=== PATIENT | male | born 1990 | race Caucasian/White ===

== ENCOUNTER 2017-04-16 18:07 | Emergency (ER) | payer SELFPAY ==
[~2017-04-16] VITALS: Ht 180.3 cm; Wt 72.6 kg
[~2017-04-16 18:07] MED LIST: KEFLEX500 MG PO; MOTRIN800 MG PO; NKHM; TRAMADOL HCL50 MG PO; VICODIN 5/500 505 MG PO; VOLTAREN50 M1 PO
== END 2017-04-16 19:09 | disposition left against medical advice (07) ==
LOC: ED 18:07
DX: R11.2 Nausea with vomiting, unspecified (principal)

== ENCOUNTER 2018-08-26 21:14 | Emergency (ER) | payer MEDICAID ==
[~2018-08-26] VITALS: Ht 172.7 cm; Wt 63.5 kg
--- NOTE | ~2018-08-26 | EKG ---
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
[2018-08-26 21:38] LABS: BASO % 0.5 % (0.0-1.0); EOS # 0.1 10*3/uL (0.0-0.4); EOS % 0.9 % (1.0-4.0); HEMOGLOBIN 15.9 g/dl (14.0-18.0); LYMPH # 1.4 10*3/uL (1.3-4.4); LYMPH % 16.5 % (27.0-41.0); MEAN CELL VOLUME 94.2 fl (80.0-94.0); MEAN CORPUSCULAR HGB 30.6 pg (27.0-31.0); MEAN CORPUSCULAR HGB CONC 32.4 g/dl (33.0-37.0); MEAN PLATELET VOLUME 10.3 fl (9.6-12.3); MONO # 0.7 10*3/uL (0.1-1.0); NEUT % 73.9 % (47.0-73.0); PLATELET COUNT AUTOMATED 231 10*3/uL (130-400); RED CELL DISTRI WIDTH 13.2 % (0-14.5); WHITE BLOOD COUNT 8.2 10*3/uL (4.8-10.8)
[2018-08-26 22:01] LABS: ALBUMIN 3.8 gm/dl (3.1-4.5); BUN 11 mg/dl (7-24); CHLORIDE 104 mmol/L (98-107); CREATININE 1.17 mg/dL (0.70-1.30); POTASSIUM 3.3 mmol/L (3.5-5.1); SGOT/AST 270 IU/L (3-35); SGPT/ALT 420 U/L (12-78); SODIUM 139 mmol/L (136-145); TOTAL PROTEIN 8.1 gm/dL (6.4-8.2)
[2018-08-26 22:03] LABS: ALKALINE PHOSPHATASE 85 U/L (45-117); TROPONIN I 0.021 ng/ml (<0.045)
== END 2018-08-27 00:53 | disposition home or self-care (01) ==
LOC: ED 21:14
PROVIDERS: Student in an Organized Health Care Education/Training Program
DX: T40.1X1A Poisoning by heroin, accidental (unintentional), initial encounter (principal); R40.20 Unspecified coma; Y92.89 Other specified places as the place of occurrence of the external cause

== ENCOUNTER 2018-10-30 13:45 | Inpatient (IN) | payer OTHER ==
[~2018-10-30] VITALS: Ht 180.3 cm; Wt 70.1 kg
--- NOTE | ~2018-10-30 | CON ---
[place], [place] REPORT OF CONSULTATION NAME: [facility]ERRER [id number] UNIT #: [id number] ROOM: 502 DOCTOR: JOVANA JIN MD BIRTHDATE: [birth year] DOS: 10/31/2018 HISTORY OF PRESENT ILLNESS: This is a 27-year-old patient who presented with chief complaint of not feeling well. Nonspecific distress, epigastric distress, jaundice. Hepatitis panel was done and was found to be hepatitis C antibody greater than 11, recently result. His urinalysis was unremarkable. He has a radiologic study, pericholecystic fluid, wall thickening measuring 1.5 cm. No stones. Findings consistent with hepatitis. His comprehensive metabolic panel, GFR greater than 60. His bilirubin 2.6, AST and ALT of 1400 and 1500+ respectively, alkaline phosphatase of 141. Hemoglobin A1c of 5.6. CBC differential, white blood cell normal, H and H of 14 and 44, platelets 175. CT scan of the abdomen and pelvis with contrast that are available. No acute process has been reported, possible hernia at L5. Drug screening amphetamine positive, THC positive. PAST MEDICAL HISTORY: Recreational drug of choice is heroin injection. He has had a recent overdosed admissions. He is actively consumer of recreational drugs. Otherwise, nonalcohol consumer except on rare base and tobacco user. PAST SURGICAL HISTORY: Unremarkable. SOCIAL HISTORY: As identified above including marijuana and illicit drugs. FAMILY HISTORY: Noncontributory. ALLERGIES: No known medications. MEDICATIONS AT HOME: None. REVIEW OF SYSTEMS: HEENT: Denies double vision or blurred vision. RESPIRATORY: Denies shortness of breath. CARDIOVASCULAR: Denies chest pain. DIGESTIVE SYSTEM: Nonspecific abdominal distress. PHYSICAL EXAMINATION: GENERAL: Nontoxic patient. HEENT: Within normal limits. Numerous tattoos, poor dental hygiene. No thrush. NECK: Supple, no thyromegaly. CHEST: Symmetric anatomy, equal expansion. HEART: Normal sinus rhythm, no gallop, no murmur. ABDOMEN: No hepato-organomegaly can be elicited. No rebound tenderness. EXTREMITIES: No cyanosis, no pedal edema. NEUROLOGIC: Alert, oriented to time, place, person. No encephalopathy. INTEGUMENT: Numerous on professional made tattoos in extremities and thorax. IMPRESSION: Acute hepatitis C, active consumer of illicit drugs, drug of choice heroin. [place], [place] REPORT OF CONSULTATION NAME: MARTÍN FERRER UNIT #: [id number] ROOM: 502 DOCTOR: ANNABEL SUBRAMANIAN,JOVANA BIRTHDATE: [birth year] PLAN AND DISCUSSION: Stabilization, IV hydration, nutritional support while he is in the house and I have had a discussion at the bedside with him. He appears at least temporarily being remorseful of acquired hepatitis C and etiology of injection history and so forth and I have advised him that once he is proved that he is drug free and avoiding the illicit drug, there is a possibility that he would be a candidate for future treatment, but that is not at the acute phase. Thank you very much indeed for your kind referral. JOVANA JIN MD CM:CONSTR:REPORT OF CONSULTATION 31 11/10/18 0958 interface
--- NOTE | ~2018-10-30 | EKG ---
[place], [place] ELECTROCARDIOGRAM REPORT NAME: MARTÍN FERRER UNIT #: [id number] ROOM: 502 DOCTOR: EPIPHANY DRAFT REPORT BIRTHDATE: [birth year] [facility] Test Date: 2018-10-30 Test Time: 15:27:46 Pat Name: MARTÍN FERRER Department: Room: [facility] Gender: M [employer] Driver: SS RESP : 1990 Requested By: TONYA WYNN Order Number: [id number] Reading MD: Jan Hwang MD Measurements Intervals [place] Rate: 77 P: 60 CT: 176 QRS: 84 QRSD: 87 T: 36 QT: 378 QTc: 428 Interpretive Statements Sinus rhythm ST elev, probable normal early repol pattern Compared to ECG 08/26/2018 21:44:04 ST (T wave) deviation now present Electronically Signed On 11-03-2018 14:20:02 PDT by Jan Hwang MD CM:EKGRPT:ELECTROCARDIOGRAM REPORT [id number] TONYA WYNN EPIPHANY DRAFT REPORT TONYA WYNN
[2018-10-30 13:47] VITALS: BP 102/64
[2018-10-30 15:06] LABS: BASO # 0.1 10*3/uL (0.0-0.1); BASO % 0.8 % (0.0-1.0); EOS # 0.2 10*3/uL (0.0-0.4); EOS % 2.4 % (1.0-4.0); HEMATOCRIT 47.5 % (42.0-52.0); HEMOGLOBIN 15.8 g/dl (14.0-18.0); LYMPH # 0.5 10*3/uL (1.3-4.4); LYMPH % 8.3 % (27.0-41.0); MEAN CELL VOLUME 93.5 fl (80.0-94.0); MEAN CORPUSCULAR HGB 31.1 pg (27.0-31.0); MEAN CORPUSCULAR HGB CONC 33.3 g/dl (33.0-37.0); MEAN PLATELET VOLUME 10.2 fl (9.6-12.3); MONO # 0.4 10*3/uL (0.1-1.0); MONO % 6.4 % (3.0-9.0); NEUT # 5.2 10*3/uL (2.3-7.9); NEUT % 81.9 % (47.0-73.0); PLATELET COUNT AUTOMATED 211 10*3/uL (130-400); RED BLOOD COUNT 5.08 10*6/uL (4.50-5.90); RED CELL DISTRI WIDTH 13.4 % (0-14.5); WHITE BLOOD COUNT 6.3 10*3/uL (4.8-10.8)
[2018-10-30 15:22] LABS: INTERNATIONAL NORM RATIO 1.1 (2.0-3.5)
[2018-10-30 16:03] LABS: ALBUMIN 3.8 gm/dl (3.1-4.5); ALKALINE PHOSPHATASE 92 U/L (45-117); BUN 11 mg/dl (7-24); CHLORIDE 101 mmol/L (98-107); CREATININE 1.06 mg/dL (0.70-1.30); LIPASE 82 U/L (73-393); SGPT/ALT 973 U/L (12-78); SODIUM 138 mmol/L (136-145); TOTAL PROTEIN 7.9 gm/dL (6.4-8.2)
[2018-10-30 16:18] LABS: SGOT/AST 942 IU/L (3-35)
[2018-10-30 16:21] LABS: BILIRUBIN 2+ (NEGATIVE); BLOOD NEGATIVE (NEGATIVE); CLARITY SL CLOUDY (CLEAR); COLOR ORANGE (YELLOW); GLUCOSE NEGATIVE (NEGATIVE); KETONE TRACE (NEGATIVE); LEUKO ESTERASE NEGATIVE (NEGATIVE); NITRITE POSITIVE (NEGATIVE); SPECIFIC GRAVITY 1.015 (1.005-1.030)
[2018-10-30 16:23] LABS: ETHYL ALCOHOL < 3.0 mg/dl (<3); TROPONIN I < 0.015 ng/ml (<0.045)
--- NOTE | 2018-10-30 16:28 | NUR ---
PAIN 2/10 AFTER TORADOL.
[2018-10-30 16:29] LABS: URINE AMPHETAMINES > 1000 (1000ng/ml); URINE BARBITURATES < 200 (200ng/ml); URINE BENZODIAZEPINES < 200 (200ng/ml); URINE CANNABINOIDS (THC) > 50 (50ng/ml); URINE COCAINE < 300 (300ng/ml); URINE METHADONE < 300 (300ng/ml); URINE OPIATES < 300 (300ng/ml)
[2018-10-30 16:31] LABS: URINE PHENCYCLIDINE < 25 (25ng/ml)
[2018-10-30 16:35] LABS: BACTERIA 1+; MUCOUS 3+
[2018-10-30 16:51] VITALS: BP 103/51
[2018-10-30 18:25] VITALS: BP 106/65
--- NOTE | 2018-10-30 18:25 | NUR ---
Time: 1824 A 27 year old MALE admitted to 5E under services of JR NORMAN DO. Pt. arrived via wheel chair from ER. Chief complaint: UTI AND ABDOMINAL PAIN.. ALESSANDRA LAIRD
--- NOTE | 2018-10-30 19:41 | NUR ---
PT TAKES NO HOME MEDS.
[2018-10-30 20:00] VITALS: BP 96/58
--- NOTE | 2018-10-30 20:09 | NUR ---
CALLED DR. DE LA VEGA AT THIS TIME. PATIENT REQUESTING NICOTROL INHALER. DR. DE LA VEGA STATED THAT IS FINE TO PUT IN
--- NOTE | 2018-10-30 22:29 | NUR ---
PATIENT RESTING IN BED WATCHING TV. DENIES PAIN. DENIES NEEDS AT THIS TIME. BED IN LOWEST POSITION CALL LIGHT IN REACH
[2018-10-31] VITALS: BP 119/50
--- NOTE | 2018-10-31 02:36 | NUR ---
24 HR chart check completed.
--- NOTE | 2018-10-31 06:07 | NUR ---
DR DE LA VEGA AWARE OF PATIENT C/O HEARTBURN. ORDER TAKEN
[2018-10-31 07:04] LABS: HEPATITIS B SURFACE AG Negative (Negative)
[2018-10-31 07:28] LABS: BASO # 0.1 10*3/uL (0.0-0.1); BASO % 1.2 % (0.0-1.0); EOS # 0.3 10*3/uL (0.0-0.4); EOS % 4.5 % (1.0-4.0); HEMATOCRIT 44.6 % (42.0-52.0); HEMOGLOBIN 14.5 g/dl (14.0-18.0); LYMPH # 0.9 10*3/uL (1.3-4.4); LYMPH % 15.6 % (27.0-41.0); MEAN CELL VOLUME 95.1 fl (80.0-94.0); MEAN CORPUSCULAR HGB 30.9 pg (27.0-31.0); MEAN CORPUSCULAR HGB CONC 32.5 g/dl (33.0-37.0); MEAN PLATELET VOLUME 11.4 fl (9.6-12.3); MONO # 0.5 10*3/uL (0.1-1.0); MONO % 8.7 % (3.0-9.0); NEUT # 4.1 10*3/uL (2.3-7.9); NEUT % 69.7 % (47.0-73.0); PLATELET COUNT AUTOMATED 175 10*3/uL (130-400); RED BLOOD COUNT 4.69 10*6/uL (4.50-5.90); RED CELL DISTRI WIDTH 13.7 % (0-14.5)
[2018-10-31 08:00] VITALS: BP 91/65
[2018-10-31 08:15] LABS: ALBUMIN 3.2 gm/dl (3.1-4.5); BUN 10 mg/dl (7-24); CHLORIDE 107 mmol/L (98-107); CHOLESTEROL 125 mg/dL (<200); CREATININE 0.79 mg/dL (0.70-1.30); PHOSPHOROUS 3.3 mg/dL (2.5-4.9); POTASSIUM 4.1 mmol/L (3.5-5.1); SODIUM 141 mmol/L (136-145); TOTAL PROTEIN 6.4 gm/dL (6.4-8.2); TRIGLYCERIDES 103 mg/dl (<150); VLDL CHOLESTEROL 21 mg/dL (6-40)
[2018-10-31 08:21] LABS: ALKALINE PHOSPHATASE 141 U/L (45-117); HDL CHOLESTEROL 26 mg/dl (40-60); LDL CHOLESTEROL 78 mg/dL (9-159)
[2018-10-31 08:22] LABS: SGOT/AST 1497 IU/L (3-35); SGPT/ALT 1545 U/L (12-78)
--- NOTE | 2018-10-31 10:41 | NUR ---
DR JIN NOTIFIED OF NEW CONSULT FOR TRANSAMNITIS.HE WILL ROUND AND SEE PT TODAY.
[2018-10-31 11:06] LABS: HEPATITIS C VIRUS ANTIBODY >11.0 s/co (0.0-0.9)
--- NOTE | 2018-10-31 11:08 | NUR ---
NOTIFIED DR MARTIN OF [facility]IT[facility]UE CALLED FROM LAB. PT IS HEP C POSITIVE.
[2018-10-31 12:00] VITALS: BP 122/60
--- NOTE | 2018-10-31 12:26 | NUR ---
Tobacco Sorter in to talk to patient. Patient states lives at HOME with GIRLFRIEND. There are NO steps in the home. Physician: NONE Pharmacy: [facility] Home health services: NONE Patient's level of ADLs: INDEPENDENT Patient has working utilities: YES DME: NONE Follow-up physician's appointment after d/c: PREFERS TO MAKE OWN Does patient want to access PORTAL?: NO Discharge plan PT LIVES AT HOME WITH HIS GIRLFRIEND AND IS INDEPENDENT IN HIS CARE. DENIES ANY NEEDS AT HOME ON DISCHARAGE. WILL CONTINUE TO FOLLOW. STATES HE WILL HAVE A RIDE HOME.. FLAVIO MELISSA
[2018-10-31 16:00] VITALS: BP 95/51
--- NOTE | 2018-10-31 16:03 | NUR ---
PT REQUESTING LAB RESULTS FROM HEP PANEL. DISCUSSED LABS AT LENGTH AT BEDSIDE. ENCOURAGED PT TO DISCUSS THE RESUKLTS WITH DR JIN WHEN HE ROUNDS AND SEES PT.
--- NOTE | 2018-10-31 18:53 | NUR ---
ZOFRAN 4 MG GIVEN FOR C/O NAUSEA.
--- NOTE | 2018-10-31 19:30 | NUR ---
DR JIN AT BEDSIDE
[2018-10-31 20:00] VITALS: BP 101/54
--- NOTE | 2018-10-31 20:45 | NUR ---
DR SINCLAIR AWARE OF PATIENT AND PATIENT'S GIRLFRIEND REQUESTING TO TALK TO A DOCTOR ABOUT NEW DIAGNOSIS.
[2018-11-01] VITALS: BP 118/56
--- NOTE | 2018-11-01 02:16 | NUR ---
PATIENT RESTING IN BED WITH NO S/S OF DISTRESS. NO NEEDS MADE. BED IN LOWEST POSITION, CALL LIGHT IN REACH
[2018-11-01 06:55] LABS: ALBUMIN 3.1 gm/dl (3.1-4.5); BUN 6 mg/dl (7-24); CHLORIDE 109 mmol/L (98-107); CREATININE 0.73 mg/dL (0.70-1.30); POTASSIUM 3.8 mmol/L (3.5-5.1); SODIUM 144 mmol/L (136-145); TOTAL PROTEIN 6.3 gm/dL (6.4-8.2)
[2018-11-01 07:25] LABS: SGOT/AST 1937 IU/L (3-35); SGPT/ALT 2273 U/L (12-78)
[2018-11-01 07:26] LABS: ALKALINE PHOSPHATASE 147 U/L (45-117)
[2018-11-01 08:00] VITALS: BP 90/56
--- NOTE | 2018-11-01 08:00 | NUR ---
Patient resting quietly with no c/o discomfort. Respirations easy and regular. Vital signs stable. No overt distress. KYARA MIGUEL
--- NOTE | 2018-11-01 09:00 | NUR ---
MARCI IN TO SEE PT.
[2018-11-01 12:00] VITALS: BP 99/50
--- NOTE | 2018-11-01 12:01 | NUR ---
HEPATITIS EDUCATION PROVIDED.
--- NOTE | 2018-11-01 12:22 | NUR ---
24 HR chart check completed.
--- NOTE | 2018-11-01 14:09 | NUR ---
FAMILY EDUCATED ON HEP C.
--- NOTE | 2018-11-01 15:31 | NUR ---
Medicated with iv zofran as ordered per pt request for c/o nausea.
[2018-11-01 16:00] VITALS: BP 117/65
--- NOTE | 2018-11-01 19:04 | NUR ---
MEDICATED WITH IV TORADOL ORDERED PER PT REQUEST FOR C/O UPPER ABDOMINAL PAIN.
--- NOTE | 2018-11-01 19:25 | NUR ---
DR FOWLER'S OFFICE # GIVENT TO PT FOR F/U.
[2018-11-01 20:00] VITALS: BP 102/75
--- NOTE | 2018-11-01 21:16 | NUR ---
MEDICATED WITH PO ATIVAN ORDERED PER PT REQUEST FOR C/O ANXIETY.
--- NOTE | 2018-11-01 22:11 | NUR ---
MEDICATION EFFECTIVE FOR PAIN.
[2018-11-02] VITALS: BP 102/47
[2018-11-02 06:58] LABS: ALKALINE PHOSPHATASE 134 U/L (45-117); BUN 5 mg/dl (7-24); CHLORIDE 107 mmol/L (98-107); CREATININE 0.81 mg/dL (0.70-1.30); POTASSIUM 3.5 mmol/L (3.5-5.1); SGOT/AST 791 IU/L (3-35); SODIUM 141 mmol/L (136-145); TOTAL PROTEIN 6.1 gm/dL (6.4-8.2)
[2018-11-02 07:28] LABS: SGPT/ALT 1610 U/L (12-78)
[2018-11-02 08:00] VITALS: BP 100/50
--- NOTE | 2018-11-02 11:01 | NUR ---
Discharge instructions reviewed with patient/family. Patient receptive and verbalizes understanding. Follow-up care arranged. Written instructions given to patient/family. PATIENT AMBULATED FROM FLOOR. NO S/S OF DISTRESS. KAZ GORE
== END 2018-11-02 11:01 | disposition home or self-care (01) | DRG 442 ==
LOC: ED 13:45 → 5E 17:16 → EDHOLD 17:16 → 5E 18:17
PROVIDERS: Internal Medicine; Nurse Practitioner; Student in an Organized Health Care Education/Training Program; ADMIT Internal Medicine
DX: B17.10 Acute hepatitis C without hepatic coma (principal); N39.0 Urinary tract infection, site not specified; R17 Unspecified jaundice; E84.9 Cystic fibrosis, unspecified; E83.41 Hypermagnesemia; R10.33 Periumbilical pain; R74.0 Nonspecific elevation of levels of transaminase and lactic acid dehydrogenase [LDH]; F17.210 Nicotine dependence, cigarettes, uncomplicated; R80.9 Proteinuria, unspecified; E80.6 Other disorders of bilirubin metabolism; J45.909 Unspecified asthma, uncomplicated; F12.90 Cannabis use, unspecified, uncomplicated; I95.9 Hypotension, unspecified; R00.0 Tachycardia, unspecified; F15.90 Other stimulant use, unspecified, uncomplicated; F14.90 Cocaine use, unspecified, uncomplicated; Z71.6 Tobacco abuse counseling

== ENCOUNTER → 2018-11-21 | Outpatient (CLI) | payer OTHER ==
[2018-11-21 20:02] LABS: BASO # 0.1 10*3/uL (0.0-0.1); BASO % 0.8 % (0.0-1.0); EOS # 0.3 10*3/uL (0.0-0.4); EOS % 4.2 % (1.0-4.0); HEMATOCRIT 43.4 % (42.0-52.0); HEMOGLOBIN 14.2 g/dl (14.0-18.0); LYMPH # 2.2 10*3/uL (1.3-4.4); LYMPH % 27.5 % (27.0-41.0); MEAN CELL VOLUME 95.4 fl (80.0-94.0); MEAN CORPUSCULAR HGB 31.2 pg (27.0-31.0); MEAN CORPUSCULAR HGB CONC 32.7 g/dl (33.0-37.0); MEAN PLATELET VOLUME 10.2 fl (9.6-12.3); MONO # 0.5 10*3/uL (0.1-1.0); MONO % 6.2 % (3.0-9.0); NEUT # 4.8 10*3/uL (2.3-7.9); NEUT % 61.2 % (47.0-73.0); PLATELET COUNT AUTOMATED 308 10*3/uL (130-400); RED BLOOD COUNT 4.55 10*6/uL (4.50-5.90); RED CELL DISTRI WIDTH 13.2 % (0-14.5); WHITE BLOOD COUNT 7.9 10*3/uL (4.8-10.8)
[2018-11-21 20:17] LABS: ALBUMIN 3.8 gm/dl (3.1-4.5); ALKALINE PHOSPHATASE 76 U/L (45-117); BUN 12 mg/dl (7-24); CHLORIDE 107 mmol/L (98-107); POTASSIUM 3.8 mmol/L (3.5-5.1); SGOT/AST 19 IU/L (3-35); SGPT/ALT 36 U/L (12-78); SODIUM 143 mmol/L (136-145); TOTAL PROTEIN 7.6 gm/dL (6.4-8.2)
[2018-11-24 13:05] LABS: HEPATITIS C QUANTITATION <15 IU/mL (.)
== END | disposition home or self-care (01) ==
LOC: LAB 19:33
PROVIDERS: Internal Medicine
DX: B17.10 Acute hepatitis C without hepatic coma (principal)

== ENCOUNTER 2019-04-15 21:08 | Emergency (ER) | payer OTHER ==
[~2019-04-15] VITALS: Ht 170.1 cm; Wt 74.8 kg
== END 2019-04-15 23:05 | disposition home or self-care (01) ==
LOC: ED 21:08
DX: M54.5 Low back pain (principal); M79.662 Pain in left lower leg; J45.909 Unspecified asthma, uncomplicated; F17.210 Nicotine dependence, cigarettes, uncomplicated; X58.XXXA Exposure to other specified factors, initial encounter; Y93.89 Activity, other specified; Y92.89 Other specified places as the place of occurrence of the external cause; Y99.0 Civilian activity done for income or pay

== ENCOUNTER 2021-02-12 21:47 | Emergency (ER) | payer OTHER ==
[~2021-02-12] VITALS: Ht 177.8 cm; Wt 68.0 kg
[2021-02-12 23:01] LABS: BASO # 0.1 10*3/uL (0.0-0.1); BASO % 0.5 % (0.0-1.0); EOS # 0.1 10*3/uL (0.0-0.4); EOS % 0.8 % (1.0-4.0); HEMATOCRIT 47.8 % (42.0-52.0); LYMPH # 2.1 10*3/uL (1.3-4.4); MEAN CELL VOLUME 96.2 fl (80.0-94.0); MEAN CORPUSCULAR HGB 31.4 pg (27.0-31.0); MEAN CORPUSCULAR HGB CONC 32.6 g/dl (33.0-37.0); MEAN PLATELET VOLUME 9.9 fl (9.6-12.3); MONO # 0.7 10*3/uL (0.1-1.0); MONO % 5.8 % (3.0-9.0); NEUT # 8.7 10*3/uL (2.3-7.9); NEUT % 74.6 % (47.0-73.0); PLATELET COUNT AUTOMATED 289 10*3/uL (130-400); RED BLOOD COUNT 4.97 10*6/uL (4.50-5.90); RED CELL DISTRI WIDTH 13.1 % (0-14.5); WHITE BLOOD COUNT 11.6 10*3/uL (4.8-10.8)
[2021-02-12 23:16] LABS: ALBUMIN 4.1 gm/dl (3.1-4.5); ALKALINE PHOSPHATASE 89 U/L (45-117); BUN 11 mg/dl (7-24); CHLORIDE 105 mmol/L (98-107); CREATININE 1.01 mg/dL (0.70-1.30); SGOT/AST 202 IU/L (3-35); SGPT/ALT 280 U/L (12-78); SODIUM 139 mmol/L (136-145); TOTAL PROTEIN 8.5 gm/dL (6.4-8.2)
[2021-02-13] MEDS ORDERED: AMOXICILLIN500 M2 PO (03:12)
== END 2021-02-13 03:46 | disposition home or self-care (01) ==
LOC: ED 21:47
PROVIDERS: Emergency Medicine
DX: K04.7 Periapical abscess without sinus (principal); F17.210 Nicotine dependence, cigarettes, uncomplicated

== ENCOUNTER 2022-12-26 22:31 | Emergency (ER) | payer OTHER ==
[~2022-12-26 22:31] MED LIST changes: +AMOXICILLIN500 M2 PO
[2022-12-26 22:58] LABS: BASO # 0.1 10*3/uL (0.0-0.1); BASO % 0.6 % (0.0-1.0); EOS # 0.1 10*3/uL (0.0-0.4); EOS % 1.1 % (1.0-4.0); HEMATOCRIT 41.7 % (42.0-52.0); LYMPH # 1.9 10*3/uL (1.3-4.4); LYMPH % 21.2 % (27.0-41.0); MEAN CELL VOLUME 90.5 fl (80.0-94.0); MEAN CORPUSCULAR HGB 30.8 pg (27.0-31.0); MEAN CORPUSCULAR HGB CONC 34.1 g/dl (33.0-37.0); MEAN PLATELET VOLUME 9.4 fl (9.6-12.3); MONO # 1.1 10*3/uL (0.1-1.0); MONO % 12.4 % (3.0-9.0); NEUT # 5.6 10*3/uL (2.3-7.9); NEUT % 64.5 % (47.0-73.0); PLATELET COUNT AUTOMATED 283 10*3/uL (130-400); RED BLOOD COUNT 4.61 10*6/uL (4.50-5.90); RED CELL DISTRI WIDTH 14.1 % (0-14.5); WHITE BLOOD COUNT 8.8 10*3/uL (4.8-10.8)
[2022-12-26 23:10] LABS: ACT PARTIAL THROMBO TIME 26.8 SECONDS (20.0-32.1); INTERNATIONAL NORM RATIO 1.1 (2.0-3.5)
[2022-12-26 23:20] LABS: ALKALINE PHOSPHATASE 78 U/L (46-116); BUN 15 mg/dl (9-23); CHLORIDE 107 mmol/L (98-107); CPK 361 U/L (34-171); LIPASE 36 U/L (12-53); POTASSIUM 3.8 mmol/L (3.4-5.1); SGPT/ALT 377 U/L (10-49); TOTAL PROTEIN 8.3 gm/dL (6.0-8.0)
[2022-12-26 23:40] LABS: BILIRUBIN 1+ (Negative); BLOOD 2+ (Negative); CLARITY Clear (Clear); COLOR Dark Yellow (Yellow); GLUCOSE Negative (Negative); KETONE Negative (Negative); LEUKO ESTERASE Negative (Negative); NITRITE Negative (Negative); PH 5.5 (4.5-8.0); SPECIFIC GRAVITY 1.025 (1.001-1.030)
[2022-12-26 23:47] LABS: URINE AMPHETAMINES Positive (1000ng/ml); URINE BARBITURATES Negative (200ng/ml); URINE BENZODIAZEPINES Negative (200ng/ml); URINE CANNABINOIDS (THC) Positive (50ng/ml); URINE COCAINE Negative (300ng/ml); URINE METHADONE Negative (300ng/ml); URINE OPIATES Negative (300ng/ml); URINE PHENCYCLIDINE Negative (25ng/ml)
[2022-12-27 00:22] LABS: BACTERIA TRACE; RBC 21-30 rbc/hpf (0-2)
== END 2022-12-27 00:46 | disposition home or self-care (01) ==
LOC: ED 22:31
PROVIDERS: Internal Medicine
DX: F32.A Depression, unspecified (principal); J45.909 Unspecified asthma, uncomplicated; F12.90 Cannabis use, unspecified, uncomplicated; F17.200 Nicotine dependence, unspecified, uncomplicated; Z79.899 Other long term (current) drug therapy